=== PATIENT | female | born 1990 | race African-American/Black ===

== ENCOUNTER 2018-05-25 01:36 | Emergency (ER) | payer SELFPAY ==
[2018-05-25] MEDS ORDERED: ONDANSETRON 4 MG TAB.RAPDIS PO ONE (01:59)
--- NOTE | 2018-05-25 02:01 | ER Document Report ---
ED General - General Mode of Arrival: Ambulatory Information source: Patient <SARY SMITH - Last Filed: 05/25/18 02:44> <DEANA MALONE - Last Filed: 05/25/18 17:26> - General Stated Complaint: LEFT FLANK PAIN Time Seen by Provider: 05/25/18 01:49 Notes: Patient is a 28 year old female with no significant medical history presents to the emergency department complaining of hematuria onset today. Patient states she noticed red urine this morning that has progressively worsened to dark red throughout the day. She also complains of lower abdominal pain described as dull, nausea and left flank pain. She denies vagina discharge, vaginal bleeding , vomiting or a history of kidney stones or infections. She further denies any recent travels or camping trips. Patient states she had a fever last week that was 102.0 and has been intermittent since. (LUISSARY) - Related Data Allergies/Adverse Reactions: erythromycin base [Erythromycin Base] Allergy (Verified 06/22/12 14:27) Past Medical History - General Information source: Patient - Social History Smoking Status: Never Smoker Cigarette use (# per day): No Chew tobacco use (# tins/day): No Smoking Education Provided: No Frequency of alcohol use: None Family History: Reviewed & Not Pertinent - Immunizations Immunizations up to date: No Hx Diphtheria, Pertussis, Tetanus Vaccination: Yes <LUISSARY - Last Filed: 05/25/18 02:44> Review of Systems - Review of Systems Constitutional: No symptoms reported EENT: No symptoms reported Cardiovascular: No symptoms reported Respiratory: No symptoms reported Gastrointestinal: See HPI, Abdominal pain, Nausea Genitourinary: See HPI, Hematuria Female Genitourinary: No symptoms reported Musculoskeletal: No symptoms reported Skin: No symptoms reported Hematologic/Lymphatic: No symptoms reported Neurological/Psychological: No symptoms reported -: Yes All other systems reviewed and negative <SARY SMITH - Last Filed: 05/25/18 02:44> Physical Exam <SARY SMITH - Last Filed: 05/25/18 02:44> <DEANA MALONE - Last Filed: 05/25/18 17:26> - Vital signs Vitals: Temp Pulse Resp BP Pulse Ox 99.3 F 77 18 123/83 100 05/25/18 02:02 05/25/18 02:02 05/25/18 02:02 05/25/18 02:02 05/25/18 02:02 - Notes Notes: GENERAL: Alert, interacts well. No acute distress. HEAD: Normocephalic, atraumatic. EYES: Pupils equal, round, and reactive to light. Extraocular movements intact. ENT: Oral mucosa moist, tongue midline. NECK: Full range of motion. Supple. Trachea midline. LUNGS: Clear to auscultation bilaterally, no wheezes, rales, or rhonchi. No respiratory distress. HEART: Regular rate and rhythm. No murmurs, gallops, or rubs. ABDOMEN: Soft, left mid quadrant tenderness to palpation. Non-distended. Bowel sounds present in all 4 quadrants. EXTREMITIES: Moves all 4 extremities spontaneously. NEUROLOGICAL: Alert and oriented x3. Normal speech. PSYCH: Normal affect, normal mood. SKIN: Warm, dry, normal turgor. No rashes or lesions noted. BACK: No CVA tenderness to palpation. (SARY SMITH) Course - Laboratory Result Diagrams: 05/25/18 02:05 05/25/18 02:05 <SARY SMITH - Last Filed: 05/25/18 02:44> - Laboratory Result Diagrams: 05/25/18 02:05 05/25/18 02:05 <DEANA MALONE - Last Filed: 05/25/18 17:26> - Re-evaluation Re-evalutation: 05/25/18 03:45 Patient well-appearing in no acute distress with benign exam. She does have bloody urine although it does not show any gross signs of infection she does have perinephric stranding around her left kidney. No apparent renal calculi are identified. It is possible she already passed a stone which has caused her hematuria. Urine will be cultured and will treat for presumptive pyelonephritis due to pernephric inflammation on CT. Also due to the fact she does state that she has been running fevers for the last week (taken by mouth thermometer) and CT findings do show perinephric inflammation suggestive of infection. she has normal kidney function. She is a good historian. We will provide community care follow-up if symptoms are not improving within the next 5 days or return to emergency department sooner for any worsening of symptoms. Patient understands and agrees with plan. Of note, I did ask if there is any trauma at the patient had encountered over the last week which she denies. 05/25/18 03:54 05/25/18 17:25 (DEANA MALONE) - Vital Signs Vital signs: Temp Pulse Resp BP Pulse Ox 98.4 F 70 18 104/73 100 05/25/18 04:57 05/25/18 04:57 05/25/18 04:57 05/25/18 04:57 05/25/18 04:57 - Laboratory Laboratory results interpreted by me: 05/25/18 05/25/18 01:45 02:05 Hgb 11.9 L Hct 35.0 L Monocytes % 15.3 H Urine Protein 100 H Urine Glucose (UA) 50 H Urine Blood LARGE H Ur Leukocyte Esterase TRACE H Urine Ascorbic Acid 20 H Discharge <SARY SMITH - Last Filed: 05/25/18 02:44> <DEANA MALONE - Last Filed: 05/25/18 17:26> - Discharge Clinical Impression: perinephric stranding Hematuria Qualifiers: Hematuria type: gross Qualified Code(s): R31.0 - Gross hematuria Condition: Good Disposition: HOME, SELF-CARE Instructions: Pyelonephritis ([facility]) Additional Instructions: Please seek medical reevaluation in the next 3-5 days if symptoms are not improving. Please take all medications as prescribed. Prescriptions: Cephalexin Monohydrate [Keflex 500 mg Capsule] 500 mg PO Q6H 10 Days #40 capsule Forms: Return to Work Referrals: [facility] [Provider Group] - Follow up in 3-5 days Scribe Attestation: 05/25/18 17:26 I personally performed the services described in the documentation, reviewed and edited the documentation which was dictated to the scribe in my presence, and it accurately records my words and actions. (DEANA MALONE) Scribe Documentation - Scribe Written by Jose:: Jose You, 05/25/2018 02:01 acting as scribe for :: Jamil <SARY SMITH - Last Filed: 05/25/18 02:44>
[2018-05-25 02:16] LABS: ABSOLUTE LYMPHOCYTES (AUTO) 1.3 10^3/uL (0.5-4.7); BASOPHILS % (AUTO) 0.4 % (0-2); EOSINOPHILS % (AUTO) 0.1 % (0-6); HEMOGLOBIN 11.9 g/dL (12.0-15.5); LYMPHOCYTES % (AUTO) 20.8 % (13-45); MEAN CORPUSCULAR HEMOGLOBIN 27.7 pg (27.0-33.4); MEAN CORPUSCULAR VOLUME 82 fl (80-97); MONOCYTES % (AUTO) 15.3 % (3-13); PLATELET COUNT 224 10^3/uL (150-450); RED BLOOD COUNT 4.28 10^6/uL (3.72-5.28); RED CELL DISTRIBUTION WIDTH 13.3 % (11.5-14.0); SEGMENTED NEUTROPHILS % (AUTO) 63.4 % (42-78); TOTAL CELLS COUNTED % (AUTO) 100 %; WHITE BLOOD COUNT 6.4 10^3/uL (4.0-10.5)
[2018-05-25 02:27] LABS: APPEARANCE,URINE SLIGHTLY-CLOUDY; BILIRUBIN,URINE NEGATIVE (NEGATIVE); COLOR,URINE RED; GLUCOSE, URINE 50 mg/dL (NEGATIVE); KETONES,URINE NEGATIVE (NEGATIVE); LEUKOCYTE ESTERASE,URINE TRACE (NEGATIVE); NITRITE,URINE NEGATIVE (NEGATIVE); PROTEIN,URINE 100 mg/dL (NEGATIVE); URINE SPECIFIC GRAVITY 1.014; UROBILINOGEN,URINE NEGATIVE mg/dL (<2.0)
[2018-05-25 02:28] LABS: ALANINE AMINOTRANSFERASE 22 U/L (9-52); ALBUMIN 3.8 g/dL (3.5-5.0); ALKALINE PHOSPHATASE 61 U/L (38-126); ANION GAP 12 (5-19); ASPARTATE AMINO TRANSFERASE 21 U/L (14-36); BILIRUBIN,DIRECT 0.3 mg/dL (0.0-0.4); BILIRUBIN,TOTAL 0.6 mg/dL (0.2-1.3); BLOOD UREA NITROGEN 8 mg/dL (7-20); CALCIUM 9.1 mg/dL (8.4-10.2); CARBON DIOXIDE 28 mmol/L (22-30); CHLORIDE 100 mmol/L (98-107); GLUCOSE 109 mg/dL (75-110); POTASSIUM 4.2 mmol/L (3.6-5.0); SODIUM 139.9 mmol/L (137-145); TOTAL PROTEIN 6.9 g/dL (6.3-8.2)
--- NOTE | 2018-05-25 03:24 | RADIOLOGY REPORT (SQ) ---
CLINICAL DATA: 28-year-old female with left flank pain and hematuria TECHNICAL DATA: Axial CT imaging of the abdomen and pelvis was performed. Sagittal and coronal reconstructed images were then performed. The CT study is performed according to ALARA (as low as reasonably achievable) or ALARA/IMAGE GENTLY, with automatic adjustment of mA and/or kV according to patient size. Comparison: None. FINDINGS: Lung bases: The lung bases are clear. Liver:The liver is normal in size and configuration. No focal hepatic abnormalities are appreciated on this unenhanced scan. Liver attenuation is within normal limits. Spleen:The spleen is normal is size, configuration and attenuation. No focal splenic abnormalities are appreciated on this unenhanced scan. Gallbladder and bile duct: The gallbladder is well distended and unremarkable. There is no biliary ductal dilatation. Pancreas: The pancreas is grossly normal in size and configuration. Adrenal Glands:The adrenal glands are normal in size and configuration. Kidneys:The kidneys are normal in size and configuration. There is mild fullness of the left renal collecting system. There is increased attenuation along the dependent left renal pelvis and proximal left ureter. No definite ureteral calculi are appreciated on this examination. There is no evidence of armando nephrolithiasis. No focal renal abnormalities are identified. There is very minimal stranding of the left perinephric fat. Stomach:The stomach is grossly normal. There is no definite hiatal hernia. Bowel:The bowel gas pattern is non specific and non obstructive. Appendix: There is no CT evidence of acute appendicitis. Free air:There is no evidence of free air. Free fluid: There is no evidence of free fluid. Vasculature: The aorta is normal in caliber and contour. The inferior vena cava is grossly unremarkable. Lymphadenopathy: No pathologic lymphadenopathy is identified. Bladder: The bladder is incompletely distended on this examination. No definite bladder calculi are identified. Reproductive: The uterus is grossly within normal limits. Bones: No acute osseous abnormalities are identified. Soft tissues: No focal soft tissue abnormalities are identified. IMPRESSION: 1. There is mild fullness of the left renal collecting system and there is increased attenuation along the dependent portion of the left renal pelvis and proximal left ureter which may be related to blood products. No definite discrete urinary tract calcifications are identified. There is minimal left perinephric inflammation. 2. Otherwise, unremarkable unenhanced CT scan of the abdomen and pelvis.
[2018-05-25] MEDS ORDERED: CEFTRIAXONE 1 GM/D5W RTU 1 GM/50 ML RTUPB IV ONE (03:58)
[2018-05-25 04:58] VITALS: BP 104/73
== END 2018-05-25 04:58 | disposition home or self-care (01) ==
LOC: ER 01:36
DX: N15.9 Renal tubulo-interstitial disease, unspecified (principal); R31.0 Gross hematuria; R10.9 Unspecified abdominal pain; Z88.3 Allergy status to other anti-infective agents
CPT/HCPCS: 99284; 96365; 36415; 87086; 85025; 81025; 87088; 80053; 81001; 87186; 74176; S0119; J0696

== ENCOUNTER 2018-11-22 10:02 | Emergency (ER) | payer SELFPAY ==
[2018-11-22] MEDS ORDERED: DEXAMETHASONE SOD PHOS INJ 10 MG/1 ML VIAL IM ONE (11:17)
--- NOTE | 2018-11-22 11:22 | ER Document Report ---
ED Medical Screen (RME) - General Chief Complaint: Sore Throat Stated Complaint: HEADACHE Time Seen by Provider: 11/22/18 11:13 Primary Care Provider: LÁZARO AGUAYO MD [Primary Care Provider] - Follow up as needed Mode of Arrival: Ambulatory Information source: Patient TRAVEL OUTSIDE OF THE [place] IN LAST 30 DAYS: No - HPI Patient complains to provider of: SORE THROAT Notes: 11/22/18 11:17 Patient here with complaints of sore throat. She states that she has had a sore throat for the last few weeks. She took some salt water gargles and it seemed to improve. Over the last few days her right tonsil has become more painful and more swollen. She also reports having a fever last night. She complains of some pain in her neck. She woke up this morning and states that her chest was slightly tight. She denies any chest pain currently. No shortness of breath. She does complain of some fatigue. She had one episode of vomiting yesterday. No neck stiffness. Exam Nontoxic, no distress. Bilateral tonsillar exudate with right tonsil slightly more swollen than the left with no obvious signs of abscess. Uvula midline. Voice normal. No trismus or drooling. No meningismus. Plan EKG, strep, mono, Decadron. An initial examination was made on the patient as part of the triage process, an d it was determined a more comprehensive evaluation was necessary. Initial labs were ordered and patient was transferred to another provider in the ED who assumed care and finished evaluation and plan. - Related Data Allergies/Adverse Reactions: erythromycin base [Erythromycin Base] Allergy (Verified 06/22/12 14:27) Past Medical History - Social History Chew tobacco use (# tins/day): No Drug Abuse: None Renal/ Medical History: Denies: Hx Peritoneal Dialysis - Immunizations Immunizations up to date: No Hx Diphtheria, Pertussis, Tetanus Vaccination: Yes Physical Exam - Vital signs Vitals: Temp Pulse Resp BP Pulse Ox 98.9 F 91 16 116/83 99 11/22/18 10:33 11/22/18 10:33 11/22/18 10:33 11/22/18 10:33 11/22/18 10:33 Course - Vital Signs Vital signs: Temp Pulse Resp BP Pulse Ox 98.9 F 91 16 116/83 99 11/22/18 10:33 11/22/18 10:33 11/22/18 10:33 11/22/18 10:33 11/22/18 10:33 Doctor's Discharge - Discharge Referrals: LÁZARO AGUAYO MD [Primary Care Provider] - Follow up as needed
[2018-11-22 13:09] VITALS: BP 118/70
--- NOTE | 2018-11-22 14:02 | ER Document Report ---
HPI - HPI Time Seen by Provider: 11/22/18 11:13 Pain Level: 3 Notes: Patient is a 28-year-old female with no significant past medical history presents emergency department complaining of a sore throat that is been present for 2 days. Patient states that she has been having a sore throat about once every month, but has not been seen by anybody for it. Check into the patient states that at times she is diagnosed with strep and came for evaluation for that. Patient states that her only concern right now is her sore throat. She is still able to eat and drink without difficulty. She did have one episode of n/v yesterday which has resolved. She is urinating normally and having normal bowel movements. No other concerns or complaints. Denies any current headache, fever, head injury, neck pain, URI, chest pain, palpitations, syncope, cough, shortness of breath, wheeze, dyspnea, abdominal pain, current nausea/vomiting/diarrhea, urinary retention, dysuria, hematuria, or rash. - ROS Systems Reviewed and Negative: Yes All other systems reviewed and negative - REPRODUCTIVE Reproductive: DENIES: : - DERM Skin Color: Normal Past Medical History - General Information source: Patient - Social History Smoking Status: Current Every Day Smoker Chew tobacco use (# tins/day): No Drug Abuse: None Family History: Reviewed & Not Pertinent Patient has suicidal ideation: No Patient has homicidal ideation: No Renal/ Medical History: Denies: Hx Peritoneal Dialysis - Immunizations Immunizations up to date: No Hx Diphtheria, Pertussis, Tetanus Vaccination: Yes Vertical Provider Document - CONSTITUTIONAL Agree With Documented VS: Yes Notes: PHYSICAL EXAMINATION: GENERAL: Well-appearing, well-nourished and in no acute distress. A&Ox4. Answers questions appropriately. Moves comfortably w/o notable distress HEAD: Atraumatic, normocephalic. EYES: Pupils equal round and reactive to light, extraocular movements intact, sclera anicteric, conjunctiva are normal. ENT: EAC clear b/l. TM's intact b/l without erythema, fluid, or perforation. Nares patent and with clear discharge. oropharynx mild erythema without exudates. 1+ tonsilar hypertrophy with mild erythema and b/l exudates. No palatine shift. Uvula midline. No tongue protrusion. No drooling, hoarseness, or airway compromise. Moist mucous membranes. No sinus tenderness. NECK: Normal range of motion, supple without lymphadenopathy. No rigidity/meningismus. LUNGS: Breath sounds clear to auscultation bilaterally and equal. No wheezes rales or rhonchi. No retractions HEART: Regular rate and rhythm without murmurs, rubs, gallops. ABDOMEN: Soft, nontender, nondistended abdomen. No guarding, no rebound. Normal bowel sounds present. No CVA tenderness bilaterally. No hepatosplenomegaly. NEUROLOGICAL: Normal speech, normal gait. Christiano neg. no LE asymmetry. equal pulses b/l. PSYCH: Normal mood, normal affect. SKIN: Warm, Dry, normal turgor, no rashes or lesions noted. - INFECTION CONTROL TRAVEL OUTSIDE OF THE [place] IN LAST 30 DAYS: No Course - Re-evaluation Re-evalutation: 11/22/18 14:06 Patient is an afebrile, well-hydrated, 28-year-old female who presents emergency department with acute pharyngitis, suspect viral. Vitals are currently acceptable without significant tachycardia, tachypnea, or hypoxia. PE is otherwise unremarkable. Rapid strep and mono negative. Strep culture pending. According to previous notes, patient noted some chest tightness when she woke up this morning which resolved on its own fairly quickly. She has not had any recurrence of this discomfort or pain. Patient is PERC/Wells negative. No COELLO, CP, SOB. EKG unremarkable. Patient is nontoxic-appearing and is tolerating p.o. without difficulty. Patient was given Decadron IM. No further labs or imaging warranted at this time. Low suspicion for any ACS, PE, pneumothorax, pericarditis, dissection, meningitis, sepsis, peritonsillar/pharyngeal abscess, respiratory compromise, Arcenio's, or other emergent systemic condition at this time. Patient is aware this condition can change from initial presentation and she needs to monitor symptoms closely. Conservative measures otherwise for symptoms. Recheck with your PCM in 2-3 days. Consider consult ENT. Return to the ED with any worsening/concerning symptoms otherwise as reviewed in discharge. Patient is in agreement. - Vital Signs Vital signs: Temp Pulse Resp BP Pulse Ox 98.9 F 91 20 118/70 98 11/22/18 10:33 11/22/18 10:33 11/22/18 13:09 11/22/18 13:09 11/22/18 13:09 Discharge - Discharge Clinical Impression: Acute pharyngitis Qualifiers: Pharyngitis/tonsillitis etiology: unspecified etiology Qualified Code(s): J02.9 - Acute pharyngitis, unspecified Condition: Stable Disposition: HOME, SELF-CARE Instructions: Sore Throat ([facility]) Additional Instructions: Maintain adequate fluid intake Take meds as directed Salt water gargles, throat sprays, mouthwash rinse, peroxide gargles tylenol/ibuprofen as needed over the counter cold medication as needed for symptoms F/u: with your PCM in 2-3 days for a recheck Consider consult with ENT for ongoing/worsening symptoms Return to the ED with any fever, worsening pain, chest pain, neck pain/stiffness, shortness of breath, cough, drooling, trouble swallowing/breathing, abdominal pain, n/v/d, rash, or worsening/concerning symptoms otherwise. Forms: Smoking Cessation Education Referrals: LÁZARO AGUAYO MD [ACTIVE STAFF] - Follow up as needed DEANA MONGE DO [ASSOCIATE] - Follow up as needed
--- NOTE | 2018-11-22 23:11 | EKG REPORT ---
SEVERITY:- BORDERLINE ECG - SINUS RHYTHM PROBABLE LEFT ATRIAL ABNORMALITY : Confirmed by: Devyn Gottlieb 22-Nov-2018 23:10:09
== END 2018-11-22 14:11 | disposition home or self-care (01) ==
LOC: ER 10:02
DX: J02.9 Acute pharyngitis, unspecified (principal); R11.2 Nausea with vomiting, unspecified; F17.200 Nicotine dependence, unspecified, uncomplicated
CPT/HCPCS: 93005; 99283; 96372; 36415; 87070; 87880; 87077; 86308; 93010; J1100

== ENCOUNTER 2018-12-19 12:08 | Emergency (ER) | payer OTHER ==
[2018-12-19 12:20] VITALS: BP 127/84
[2018-12-19] MEDS ORDERED: ACETAMINOPHEN 325 MG TABLET PO ONE (13:42)
[2018-12-19] MEDS ORDERED: LIDOCAINE 5% (700 MG) TRANSDERMAL ADH..PATCH TP ONE (13:42)
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
[2018-12-19 14:28] LABS: APPEARANCE,URINE CLEAR; BILIRUBIN,URINE NEGATIVE (NEGATIVE); COLOR,URINE YELLOW; GLUCOSE, URINE NEGATIVE (NEGATIVE); KETONES,URINE NEGATIVE (NEGATIVE); LEUKOCYTE ESTERASE,URINE NEGATIVE (NEGATIVE); NITRITE,URINE NEGATIVE (NEGATIVE); PROTEIN,URINE NEGATIVE (NEGATIVE); URINE SPECIFIC GRAVITY 1.015; UROBILINOGEN,URINE NEGATIVE mg/dL (<2.0)
== END 2018-12-19 15:14 | disposition home or self-care (01) ==
LOC: ER 12:08
DX: S39.012A Strain of muscle, fascia and tendon of lower back, initial encounter (principal); S76.912A Strain of unspecified muscles, fascia and tendons at thigh level, left thigh, initial encounter; S16.1XXA Strain of muscle, fascia and tendon at neck level, initial encounter; S09.90XA Unspecified injury of head, initial encounter; V89.2XXA Person injured in unspecified motor-vehicle accident, traffic, initial encounter; F17.200 Nicotine dependence, unspecified, uncomplicated; Z88.3 Allergy status to other anti-infective agents
CPT/HCPCS: 81001; 99284

== ENCOUNTER 2020-05-16 07:16 | Emergency (ER) | payer OTHER ==
--- NOTE | 2020-05-16 08:17 | ER Document Report ---
ED Breast Problem - General Chief Complaint: Breast Problem Stated Complaint: BREAST PAIN Time Seen by Provider: 05/16/20 08:02 Notes: Patient is a 30-year-old female who presents the emergency department with the chief complaint of right breast pain that started about a week ago. Patient states that when she moves a certain way, she can feel a "on fire" pain in her right breast. Denies any fever, body aches, or chills. Denies any history of abscesses in the past. Denies any past medical history. Denies any family history of breast cancer in the past. Denies any nipple drainage. TRAVEL OUTSIDE OF THE [place] IN LAST 30 DAYS: No - Related Data Allergies/Adverse Reactions: erythromycin base [Erythromycin Base] Allergy (Verified 05/16/20 07:24) Past Medical History - General Information source: Patient - Social History Smoking Status: Current Every Day Smoker Chew tobacco use (# tins/day): No Frequency of alcohol use: Rare Family History: Reviewed & Not Pertinent Patient has homicidal ideation: No Renal/ Medical History: Denies: Hx Peritoneal Dialysis - Immunizations Immunizations up to date: No Hx Diphtheria, Pertussis, Tetanus Vaccination: Yes Review of Systems - Review of Systems Notes: REVIEW OF SYSTEMS: CONSTITUTIONAL : Denies recent illness. Denies recent unintentional weight loss. Denies fever, chills, or sweats. EENT: Denies eye, ear, throat, or mouth pain, discharge, or symptoms. Denies nasal or sinus congestion. CARDIOVASCULAR: Denies chest pain. RESPIRATORY: Denies shortness of breath, cough, congestion, difficulty breathing, or wheezing. GASTROINTESTINAL: Denies nausea, vomiting, and diarrhea. Denies abdominal pain. Denies constipation. GENITOURINARY: Denies difficulty urinating, burning, blood in urine, urgency or frequency. MUSCULOSKELETAL: Denies neck and back pain. Denies joint pain or swelling. SKIN: Denies rash, itchiness, or lesions HEMATOLOGIC : Denies easy bruising or bleeding. LYMPHATIC: Denies swollen, painful, enlarged glands. NEUROLOGICAL: Denies no numbness or tingling denies weakness. Denies headache. Denies altered mental status. Denies alteration in speech. PSYCHIATRIC: Denies stress, anxiety, alteration in sleep patterns, or depression. BREAST: See HPI. All other systems reviewed and negative. Physical Exam - Vital signs Vitals: Temp Pulse Resp BP Pulse Ox 98.1 F 69 20 119/96 H 100 05/16/20 07:22 05/16/20 07:22 05/16/20 07:22 05/16/20 07:22 05/16/20 07:22 - Notes Notes: PHYSICAL EXAMINATION: GENERAL: Appears well, healthy, well-nourished, no acute distress. HEAD: Normocephalic, atraumatic. EYES: PERRL, conjunctiva normal, all extraocular movements intact, sclera no nicteric ENT: Moist mucous membranes. NECK: Supple, no noticeable swelling, redness, rash. Normal range of motion. LUNGS: Equal breath sounds bilaterally and clear to auscultation. No wheezes r ales or rhonchi. CARDIOVASCULAR: S1-S2, regular rate, regular rhythm. Radial pulses 2+, normal. ABDOMEN: Normoactive bowel sounds. Soft, nontender, no guarding, no rebound tenderness, and no masses palpated. EXTREMITIES: Normal strength and range of motion, no pitting or edema. No cyanosis. NEUROLOGICAL: Moves all extremities upon command. Strength 5/5 in all extremities. PSYCH: Normal mood, normal affect. SKIN: Warm, dry. No rash, lesions, ulcerations noted. Normal skin turgor. BREAST: Tenderness and firmness noted to right breast inferior to nipple area. Course - Re-evaluation Re-evalutation: 05/16/20 08:17 Exam done with LORI Nicole at bedside. Tenderness noted to right breast. We will send patient for an ultrasound of right breast. 05/16/20 09:26 I spoke with [facility]. She attempted to call patient financial services to have the patient evaluated. She was unable to contact anybody. She will have the patient go over to the [facility] imaging center. Patient will have a bilateral diagnostic ultrasound with mammogram. I asked if the radiologist can call me with the results. She said this can be done. I will then follow-up with the patient in regards to the results of the ultrasound. 05/16/20 10:46 Dr. Osorio, the radiologist called me with the patient's results. She states that she does not see anything. I will call the patient with results. 05/16/20 10:49 I spoke to the patient over the phone. She denies ever having breast-fed before. Advised patient take ibuprofen and Tylenol for pain relief. Patient was thankful that there was nothing concerning found on her ultrasound. - Vital Signs Vital signs: Temp Pulse Resp BP Pulse Ox 98.1 F 69 20 119/96 H 100 05/16/20 07:22 05/16/20 07:22 05/16/20 07:22 05/16/20 07:22 05/16/20 07:22 Discharge - Discharge Clinical Impression: Breast pain, right Condition: Stable Disposition: HOME, SELF-CARE Additional Instructions: You were seen today in the emergency department for right breast pain. Please [facility] to [facility] and give them the order for the ultrasound and mammogram. The address is: [address] [place] [address] [place] [address]. [address] is across the street from the hospital. It is a brick building. Once the radiologist reads the images, they will give me a call and I will call you with the results. Forms: Follow-Up Radiology Testing
[2020-05-16 09:42] VITALS: BP 130/89
== END 2020-05-16 09:42 | disposition home or self-care (01) ==
LOC: ER 07:16
DX: N64.4 Mastodynia (principal); Z88.1 Allergy status to other antibiotic agents; F17.200 Nicotine dependence, unspecified, uncomplicated
CPT/HCPCS: 99282

== ENCOUNTER → 2020-05-16 | Outpatient (CLI) | payer SELFPAY ==
--- NOTE | 2020-05-16 10:52 | WOMENS IMAGING REPORT ---
EXAM DESCRIPTION: U/S BREAST UNILAT LIMITED IMAGES COMPLETED DATE/TIME: 05/16/2020 10:32 am REASON FOR STUDY: N64.4 MASTODYNIA N64.4 MASTODYNIA COMPARISON: None. TECHNIQUE: Real-time and static grayscale imaging performed of the right breast targeted to the area of clinical concern right breast lower outer quadrant. Selected color Doppler images recorded. LIMITATIONS: None. FINDINGS: MASS: No mass identified. Normal glandular tissue. OTHER: No other significant finding. No abscess. No cysts. No dilated ducts IMPRESSION: No suspicious findings detected by ultrasound. BIRAD: Negative. RECOMMENDATION: RECOMMENDED FOLLOW-UP: Follow-up as clinically indicated. COMMENT: The [employer] ([employer]) has developed recommendations for screening MRI of the breasts in certain patient populations, to be used in conjunction with mammography. Breast MRI s urveillance may be appropriate for women with more than 20% lifetime risk of developing breast cancer as determined by genetic testing, significant family history of the disease, or history of mantle r adiation for Hodgkins Disease. [employer] Practice Guidelines 2008. TECHNICAL DOCUMENTATION: JOB ID: [id number] 2010 [employer]- All Rights Reserved Reading location - IP/workstation name: [email or web address]
== END ==
LOC: WI 10:03
PROVIDERS: ATTEND Nurse Practitioner
DX: N64.4 Mastodynia (principal)
CPT/HCPCS: 76642